=== PATIENT | female | born 2000 | race African-American/Black ===

== ENCOUNTER 2023-03-01 06:11 | Emergency (ER) | payer OTHER, SELFPAY ==
[2023-03-01] VITALS (15 sets, daily range): BP systolic 127–140; BP diastolic 70–85; PULSE 99–125; RESP 8–19; TEMP 37.2; O2SAT 88–100
--- NOTE | ~2023-03-01 | XR_ITS ---
Portable chest x-ray Comparison: None Clinical History: Dyspnea Findings: Lungs are clear, without focal consolidation or pleural effusion. Cardiomediastinal silho uette is unremarkable. Bones and soft tissues are unremarkable. Impression: Normal chest. Reviewed, dictated and finalized at location M. Impression: Normal chest.
--- NOTE | 2023-03-01 06:24 | ED.GENADULT ---
HPI - General Adult General Chief complaint: Shortness of Breath/Dyspnea <Varun Albarran MD - Last Filed: 03/01/23 06:26> Stated complaint: sob <Varun Albarran MD - Last Filed: 03/01/23 06:26> Time Seen by Provider: 03/01/23 06:20 <Varun Albarran MD - Last Filed: 03/01/23 06:26> History of Present Illness HPI narrative: Patient is a 23-year-old female who presents emergency department with chief complaint of shortness of breath. Patient reports she has history of asthma reports over the last several days she has noticed that her allergies have been acting up where she feels as though she is starting to get sick. Patient reports that she started coughing and has had some wheezing the patient reports that she ran out of her albuterol this evening and started getting more short of breath. Patient reports she had to be admitted to the hospital before in the past for asthma the patient reports that she was given a nebulizer treatment in route to the emergency department by EMS and is feeling much better at this time. <Varun Albarran MD - Last Filed: 03/01/23 06:26> Related Data Allergies/adverse reactions: Allergies Allergy/AdvReac Type Severity Reaction Status Date / Time No Known Allergies Allergy Verified 03/01/23 06:20 <Varun Albarran MD - Last Filed: 03/01/23 06:26> Review of Systems Review of Systems: A 10 system review of systems was completed on the patient and is negative except for what is stated in the HPI. Nursing and ancillary documentation was reviewed. <Varun Albarran MD - Last Filed: 03/01/23 06:26> Exam Narrative: GENERAL: Well-appearing, well-nourished, and in no acute distress. HEAD: Normocephalic, atraumatic. EYES: PERRLA and EOMI. ENT: Nares clear, no rhinorrhea or epistaxis. Mucous membranes moist. NECK: Supple. CHEST: Scattered wheezes to auscultation. No respiratory distress. HEART: Regular rate and rhythm. No murmur heard. Normal peripheral pulses. ABDOMEN: Soft, nontender, nondistended, normal active bowel sounds. EXTREMITIES: Normal range of motion. No edema. SKIN: Warm, dry, no rash. NEURO: No focal deficits. Alert and oriented x3. PSYCH: Normal mood and affect. <Varun Albarran MD - Last Filed: 03/01/23 06:26> Course Course Emergency Course: 07:00 - Patient signed out to me by previous ED physician, Dr. Albarran with plan for repeat labs and reassessment. 07:11 - Evaluation, the patient states she feels about 80% of her normal. We will give an additional nebs and reassess. 07:43 - On reevaluation, the patient states she feels little worse than previous. We will give 1 additional neb, 2 g of magnesium and reassess. 09:08 - On reevaluation, the patient states she feels 90% of her normal and is comfortable with the discharge. I advised the patient to take 4 puffs of albuterol once an hour for 3 doses followed by 2 to 4 puffs as needed. Discussed return and emergency precautions including signs/symptoms of respiratory distress and ACS. The patient voiced understanding and is comfortable with the plan. All questions answered to her satisfaction. <Jeff Barraza MD - Last Filed: 03/01/23 09:21> Vital Signs Vital signs: Vital Signs Temperature 98.9 F 03/01/23 06:11 Pulse Rate 125 H 03/01/23 06:11 Respiratory Rate 18 03/01/23 06:11 Blood Pressure 140/70 03/01/23 06:11 Pulse Oximetry 93 03/01/23 06:11 Oxygen Delivery Room Air 03/01/23 06:11 Temperature 98.9 F 03/01/23 06:11 Pulse Rate 105 H 03/01/23 07:17 Respiratory Rate 17 03/01/23 07:17 Blood Pressure 140/70 03/01/23 06:11 Pulse Oximetry 93 03/01/23 06:21 Oxygen Delivery Room Air 03/01/23 06:21 <Varun Albarran MD - Last Filed: 03/01/23 06:26> Vital Signs Temperature 98.9 F 03/01/23 06:11 Pulse Rate 125 H 03/01/23 06:11 Respiratory Rate 18 05/0
[2023-03-01] MEDS: methylPREDNISolone SOD SUCC 125 MG VIAL IV PUSH (06:28)
[2023-03-01] MEDS: LEVALBUTEROL NEB 1.25 MG/3 ML INHALATION ×3 (06:39→07:54)
[2023-03-01] MEDS: IPRATROPIUM BR 0.02% INH SOLN 0.5 MG/2.5 ML VIAL INHALATION (06:39)
[2023-03-01 07:14] LABS: Influenza A QL RT-PCR Negative (Negative); Influenza B QL RT-PCR Negative (Negative); RSV RNA, RT-PCR Negative (Negative); SARS-CoV-2 RNA PCR Negative (Negative)
[2023-03-01] MEDS: MAGNESIUM SULF 2 GM/WATER 50ML 2 GM/50 ML BAG IVPB (07:50)
--- NOTE | 2023-03-01 09:21 | PC.NURSE ---
2 L O2 removed by EDP Dr Barraza. O2 Sat 94% on room air.
== END 2023-03-01 09:37 | disposition home or self-care (01) ==
PROVIDERS: Emergency Medicine; Emergency Provider Preventive Medicine Aerospace Medicine
DX: J45.901 Unspecified asthma with (acute) exacerbation (principal); Z20.822 Contact with and (suspected) exposure to COVID-19
CPT/HCPCS: 71045; 87637; 94640; 96365; 96375; 99285; J2930; J3475

== ENCOUNTER 2023-04-25 06:17 | Emergency (ER) | payer OTHER, SELFPAY ==
[2023-04-25 06:22] VITALS: BP 120/80; PULSE 100; RESP 14; TEMP 36.5; O2SAT 98
[2023-04-25 06:26] VITALS: BP 133/86; PULSE 95; RESP 13; TEMP 37.1; O2SAT 100
--- NOTE | 2023-04-25 06:45 | ED.GENADULT ---
HPI - General Adult General Chief complaint: Abdominal Pain Stated complaint: constipated? Time Seen by Provider: 04/25/23 06:32 Source: patient Mode of arrival: ambulatory Limitations: no limitations History of Present Illness HPI narrative: Patient presents with anal pain for 7 days, worse with defecation. Nothing make it better. History of constipation lately. She denies any fever, chills, nausea, vomiting or anal sex. Patient also denies any abdominal pain ,urinary symptoms or vaginal discharge Related Data Allergies Allergy/AdvReac Type Severity Reaction Status Date / Time No Known Allergies Allergy Verified 03/01/23 06:20 Review of Systems Review of Systems: All systems reviewed & are unremarkable except as noted in HPI and below Exam Narrative: General appearance: Well-developed, well-nourished Skin: Normal color Head: Normocephalic, nontraumatic Eyes: Clear conjunctiva ENT: Oropharynx normal, ears normal, nose normal Neck: Supple, nontender Chest and respiratory: Airway patent, no respiratory distress, no accessory muscle use Heart: Regular rate/rhythm Abdomen: Soft, nontender, no organomegaly, quiet bowel sounds. Anal exam showed anal fissure, tender, no active bleeding and hemorrhoid Musculoskeletal: Normal range of motion, nontender back Neurologic: Alert and oriented ?3, [employer] is normal as tested, no gross motor deficit Course Vital Signs Vital signs: Vital Signs Temperature 36.5 C 04/25/23 06:22 Pulse Rate 100 04/25/23 06:22 Respiratory Rate 14 04/25/23 06:22 Blood Pressure 120/80 04/25/23 06:22 Pulse Oximetry 98 04/25/23 06:22 Oxygen Delivery Room Air 04/25/23 06:22 Temperature 37.1 C 04/25/23 06:26 Pulse Rate 95 04/25/23 06:26 Respiratory Rate 13 04/25/23 06:26 Blood Pressure 133/86 04/25/23 06:26 Pulse Oximetry 100 04/25/23 06:26 Oxygen Delivery Room Air 04/25/23 06:26 Medical Decision Making [facility] Narrative Medical decision making narrative: Patient presents with anal pain during defecation, physical examination showed anal fissure and hemorrhoid. Patient will be discharged on Anusol suppository, sitz bath, surgical follow-up Differential Diagnosis Differential Diagnosis: Anal fissure, hemorrhoids Vital Signs Vital Signs: Vital Signs Temperature 36.5 C 04/25/23 06:22 Pulse Rate 100 04/25/23 06:22 Respiratory Rate 14 04/25/23 06:22 Blood Pressure 120/80 04/25/23 06:22 Pulse Oximetry 98 04/25/23 06:22 Oxygen Delivery Room Air 04/25/23 06:22 Temperature 37.1 C 04/25/23 06:26 Pulse Rate 95 04/25/23 06:26 Respiratory Rate 13 04/25/23 06:26 Blood Pressure 133/86 04/25/23 06:26 Pulse Oximetry 100 04/25/23 06:26 Oxygen Delivery Room Air 04/25/23 06:26 Critical Care Time Critical Care Time Critical Care Time: No Discharge Plan Discharge Clinical Impression: Anal fissure, unspecified, Hemorrhoidal skin tag Constipation Qualifiers: Constipation type: unspecified constipation type Qualified Code(s): K59.00 - Constipation, unspecified Patient Disposition: Home, Self-Care Condition: Stable Instructions: Constipation (ED), Hemorrhoids (ED), Anal Fissure (ED) Additional Instructions: Return if symptoms are worsening , call Dr. Houston for appointment, take Tylenol as as needed for aches and pain, continue home medications.sitz baths Prescriptions: New hydrocortisone acetate [Anusol-HC] 25 mg suppository 25 mg RECTAL BID Qty: 20 0RF docusate sodium [Colace] 100 mg capsule 100 mg PO BID Qty: 20 0RF No Action albuterol sulfate 90 mcg/actuation HFA aerosol inhaler 2 puff in
== END 2023-04-25 07:06 | disposition home or self-care (01) ==
PROVIDERS: Emergency Provider Emergency Medicine
DX: K60.2 Anal fissure, unspecified (principal); K64.4 Residual hemorrhoidal skin tags; K59.00 Constipation, unspecified
CPT/HCPCS: 99283

== ENCOUNTER 2023-08-12 15:53 | Outpatient (CLI) | payer OTHER, SELFPAY ==
[2023-08-12 16:24] VITALS: BP 129/83; PULSE 94
[2023-08-12 16:30] VITALS: BP 123/80; PULSE 99
[2023-08-12 16:41] LABS: Basophils Percent Auto 0.3 % (0.2-1.2); Eosinophils Absolute Auto 0.1 K/mm3 (0-0.3); Eosinophils Percent Auto 2.1 % (0-4.4); Hematocrit 45.6 % (37.0-47.0); Hemoglobin 14.3 g/dL (12.0-15.0); Immature Granulocyte Absolute 0.02 K/mm3 (0.00-0.031); Immature Granulocyte Percent A 0.3 % (0-0.5); Lymphocytes Absolute Auto 2.57 K/mm3 (0.9-3.2); Lymphocytes Percent Auto 44.8 % (18.3-44.2); Mean Corpuscular HGB Conc 31.4 g/dl (32-36); Mean Corpuscular Volume 92.5 fl (80-100); Mean Platelet Volume 10.7 fl (7.4-10.4); Monocytes Absolute Auto 0.3 K/mm3 (0.1-0.6); Monocytes Percent Auto 5.2 % (2.6-8.5); Neutrophils Absolute Auto 2.7 K/mm3 (1.3-6.7); Neutrophils Percent Auto 47.3 % (45.5-73.1); Platelet Count Result 257 k/mm3 (150-375); Red Blood Count 4.93 M/mm3 (4.2-5.4); Red Cell Distribution Width 14.5 % (11.5-14.5); White Blood Count 5.7 K/mm3 (4.5-10.0)
[2023-08-12 16:42] LABS: Appearance Urine Clear (Clear); Bilirubin Urine Negative (Negative); Blood Urine Negative (Negative); Color Urine Yellow (Yellow); Glucose Urine UA Negative (Negative); Ketones Urine Negative (Negative); Leukocyte Esterase Ur Negative LEU/UL (NEGATIVE); Nitrate Urine Negative (Negative); Protein Urine Negative (Negative); Specific Grav Ur 1.022 (1.001-1.035); Urobilinogen Urine 0.2 mg/dL (<2.0); pH Urine 5.5 (5.0-9.0)
[2023-08-12 16:48] LABS: Add Urine Microscopic? NO
[2023-08-12 16:55] LABS: Alanine Aminotransferase 13 U/L (6-35); Albumin Level 4.1 g/dL (3.5-5.1); Alkaline Phosphatase 76 U/L (38-126); Anion Gap 10 mmol/L (8-16); Aspartate Amino Transferase 17 U/L (14-36); Bilirubin,Total 0.7 mg/dL (0.2-1.3); Blood Urea Nitrogen 3 mg/dL (7-17); Calcium 8.8 mg/dL (8.4-10.2); Carbon Dioxide 15 mmol/L (22-30); Chloride 107 mmol/L (98-107); Estimated Glomerular Filt Rate > 60; Glucose 143 mg/dL (65-110); Potassium 3.3 mmol/L (3.4-5.0); Sodium 132 mmol/L (137-145); Uric Acid 4.6 mg/dL (2.5-7.5)
--- NOTE | 2023-08-12 17:28 | PC.NURSE ---
called Dr. Chaidez reported PIH lab and BP. discharge order received with 24 urine
[2023-08-12 17:30] LABS: Creatinine Urine 223.4 mg/dL
[2023-08-12 18:15] LABS: Total Protein Urine Random < 5 mg/dL; Ur Ttl Prot Creatinine Ratio < 0.02 mg/mg (0-0.20)
== END 2023-08-12 17:30 | disposition home or self-care (01) ==
LOC: ANHOBOP 16:06 → ANHLDR 16:09 → ANHOBOP 16:36
PROVIDERS: Visit Provider Advanced Practice Midwife
DX: O13.9 Gestational [pregnancy-induced] hypertension without significant proteinuria, unspecified trimester (principal); Z3A.00 Weeks of gestation of pregnancy not specified
CPT/HCPCS: 36415; 80053; 81003; 82570; 84156; 84550; 85025; 87086; 87088; 99199

== ENCOUNTER 2023-08-15 14:56 | Outpatient (NON) | payer OTHER, SELFPAY ==
[2023-08-15 15:08] VITALS: BMI 31.8
[2023-08-15 16:02] LABS: Total Volume 24 Hour Urine 700 ml
[2023-08-15 16:03] LABS: Total Volume 24 Hour Urine 700 ml
[2023-08-15 16:16] LABS: Creatinine 24 Hour Urine 0.9 gm/24 (0.8-1.8); Creatinine Urine 136.9 mg/dL
[2023-08-15 16:17] LABS: Total Protein Urine 24 Hr < 35 mg/24hr (28-141); Total Protein Urine Random < 5 mg/dL
== END 2023-08-15 14:57 | disposition home or self-care (01) ==
LOC: ANHOBOP 15:06
PROVIDERS: Visit Provider Obstetrics & Gynecology
DX: Z34.90 Encounter for supervision of normal pregnancy, unspecified, unspecified trimester (principal); Z3A.00 Weeks of gestation of pregnancy not specified
CPT/HCPCS: 81050; 82570; 84156